=== PATIENT | female | born 2000 | race Caucasian/White ===

== ENCOUNTER 2022-02-19 20:59 | Emergency (ER) | payer BC ==
[2022-02-19 21:40] LABS: Hemoglobin 12.6 g/dL (12.0-15.5); Mean Corpuscular HGB CONC 32.1 g/dL (32.0-36.0); Mean Corpuscular Hemoglobin 24.7 pg (27.0-33.0); Mean Corpuscular Volume 76.9 fl (81.6-98.3); Mean Platelet Volume 12.2 fl (7.4-10.4); Platelet Count 190 10x3/uL (150-450); RBC Distribution Width 14.6 % (11.5-14.5); White Blood Cell (WBC) Count 8.7 10x3/uL (3.5-10.5)
[2022-02-19] MEDS ORDERED: Ketorolac Tromethamine 30 MG/ML VIAL ONE (21:42)
[2022-02-19 21:44] LABS: MDiff Complete? YES
[2022-02-19 21:47] LABS: BHCG - Serum Negative (NEGATIVE); Pregs Control Background? CLEAR/WHITE (CLR/WHITE); Pregs Control Bar Appear? YES (CONTROL BAR)
[2022-02-19 21:52] LABS: ALT (SGPT) 13 U/L (8-55); AST (SGOT) 15 U/L (5-30); Albumin 3.9 g/dL (3.5-5.0); Alkaline Phosphatase 52 U/L (40-100); Anion Gap 15 mmol/L (10-20); BUN (Urea Nitrogen) 7 mg/dL (8.4-21.0); Bilirubin, Total 0.7 mg/dL (0.2-1.2); Calc. Creatinine Clearance 0 mL/min (70-130); Calcium 9.6 mg/dL (7.8-10.44); Carbon Dioxide 23 mmol/L (22-29); Chloride 100 mmol/L (98-107); Estimated GFR 118; Globulin 3.3 g/dL (2.4-3.5); Glucose 93 mg/dL (70-105); Potassium 3.5 mmol/L (3.5-5.1); Protein, Total 7.2 g/dL (6.0-8.3); Sodium 134 mmol/L (136-145)
[2022-02-19 22:10] LABS: Band 5 % (5-11); Lymphocytes 10 % (28-48); Monocytes 8 % (0-4); Neutrophil 69 % (31-61); Reactive Lymphocytes 8 % (0-10)
[2022-02-19 22:12] LABS: Platelet Morphology Comment Appears Adequate; RBC Morphology Normal
== END 2022-02-19 22:56 | disposition home or self-care (01) ==
LOC: CSHERS 20:59
DX: N61.0 Mastitis without abscess (principal)
CPT/HCPCS: 80053; 84703; 85025; 96361; 96374; J1885

== ENCOUNTER 2024-08-20 04:14 | Inpatient (IN) | payer BC ==
[2024-08-20] MEDS ORDERED: Acetaminophen 325 MG TAB PO PRN (06:20)
[2024-08-20] MEDS ORDERED: Ondansetron ODT 4 MG TAB PO PRN (06:20)
[2024-08-20 06:42] VITALS: BMI 25.8
[2024-08-20 07:42] LABS: INR-International Normal Ratio 0.9; PTT 21.5 sec (22.0-33.0); Prothrombin Time 9.8 sec (9.5-12.1)
[2024-08-20] MEDS: Estrogens, Conjugated 25 mg Vial SLOW IVP SCH ×2 (08:05→23:01)
[2024-08-20] MEDS: Witch Hazel 100 PAD JAR TOP PRN (18:31)
[2024-08-20] MEDS: Preparation H Ointment 57 gram tube TOP SCH (18:32)
[2024-08-20] MEDS: Preparation H Ointment 28 GM TUBE TOP SCH (18:32)
[2024-08-20] MEDS: Tranexamic Acid 1,000 MG in Sodium Chloride 0.9% 250 ML 250 ML IVPB SCH (19:12)
[2024-08-20] MEDS: FLU (Fluarix Triv) TS24-25(6MOS UP)/PF 45 MCG/0.5 ML Syringe IM ONE (19:31)
[2024-08-20 19:34] LABS: Hematocrit 31.3 % (34.9-44.5); Hemoglobin 10.3 g/dL (12.0-15.5)
[2024-08-20] MEDS: Sterile Water 10 ML ONE (23:00)
[2024-08-21 04:53] LABS: #Basophils 0.03 10x3/uL (0.0-0.2); #Eosinophils 0.18 10x3/uL (0.0-0.5); #Monocytes 0.77 10x3/uL (0.0-1.1); #Neutrophils 7.61 10x3/uL (1.5-8.4); %Basophils 0.3 % (0.0-2.0); %Eosinophils 1.7 % (0.0-6.0); %Lymphocytes 20.2 % (18.0-47.0); %Monocytes 7.1 % (0.0-10.0); %Neutrophils 70.1 % (40.0-75.0); Hematocrit 30.2 % (34.9-44.5); Hemoglobin 9.4 g/dL (12.0-15.5); Mean Corpuscular HGB CONC 31.1 g/dL (32.0-36.0); Mean Corpuscular Hemoglobin 23.1 pg (27.0-33.0); Mean Corpuscular Volume 74.2 fL (81.6-98.3); Mean Platelet Volume 11.3 fL (7.4-10.4); Platelet Count 269 10x3/uL (150-450); RBC Distribution Width 24.7 % (11.5-14.5); Red Blood Cell (RBC) Count 4.07 10x6/uL (3.90-5.03); White Blood Cell (WBC) Count 10.8 10x3/uL (3.5-10.5)
[2024-08-21 05:05] LABS: ALT (SGPT) 15 U/L (8-55); AST (SGOT) 13 U/L (5-34); Albumin 2.8 g/dL (3.5-5.0); Alkaline Phosphatase 31 U/L (40-110); Anion Gap 13 mmol/L (10-20); BUN (Urea Nitrogen) 9 mg/dL (7.0-18.7); Bilirubin, Total 0.7 mg/dL (0.2-1.2); Calc. Creatinine Clearance 142 mL/min (70-130); Calcium 8.6 mg/dL (7.8-10.44); Carbon Dioxide 21 mmol/L (22-29); Chloride 108 mmol/L (98-107); Estimated GFR 123; Glucose 91 mg/dL (70-105); Potassium 4.1 mmol/L (3.5-5.1); Protein, Total 5.8 g/dL (6.0-8.3); Sodium 138 mmol/L (136-145)
[2024-08-21] MEDS: Sterile Water 10 ML ONE (05:57)
[2024-08-21 07:38] VITALS: BP 108/65; TEMP 98.3
== END 2024-08-21 10:05 | disposition home or self-care (01) | DRG 760 ==
LOC: CSHPP 05:41 → OBSVTOIN 11:38
PROVIDERS: ADMIT Obstetrics & Gynecology; ATTEND Obstetrics & Gynecology
PROC: 30233N1 Transfusion of Nonautologous Red Blood Cells into Peripheral Vein, Percutaneous Approach (ICD-10-PCS; principal; 2024-08-20)
DX: N93.9 Abnormal uterine and vaginal bleeding, unspecified (principal); D62 Acute posthemorrhagic anemia; Z79.899 Other long term (current) drug therapy
CPT/HCPCS: 36415; 36430; 76856; 80053; 84703; 85025; 85610; 85730; 86850; 86900; 86901; 93005; 96374; G0378; J1410; P9016